=== PATIENT | male | born 1960 | race Caucasian/White ===

== ENCOUNTER → 2019-06-14 | Emergency (ER) | payer OTHER ==
[~2019-06-14] VITALS: Ht 170.2 cm; Wt 83.9 kg
[~2019-06-14] MED LIST: DESONIDE15 GM; FENOFIBRATE160 M1; LOSARTAN POTASS25 MG; SIMVASTATIN10 MG; [UNRECOGNIZED DRUG - OTHER]; [UNRECOGNIZED DRUG - OTHER]; [UNRECOGNIZED DRUG - OTHER]
== END | disposition home or self-care (01) ==
LOC: ER 22:30
DX: T78.49XA Other allergy, initial encounter (principal); R21 Rash and other nonspecific skin eruption